=== PATIENT | female | born 1950 | race Caucasian/White ===

== ENCOUNTER 2023-01-01 00:38 | Inpatient (IN) | payer MEDICARE ==
[~2023-01-01] VITALS: Ht 162.6 cm; Wt 58.1 kg
--- NOTE | 2023-01-01 00:54 | NUR ---
Edward AOx4, able to express her concerns. Edward states she had a nuclear test done earlier today at [facility] and started feeling "weird", shaky, right arm and throat pain. No signs of respiratory distress. Discussed plan of care, aptient verbalized agreement.
[2023-01-01] MEDS ORDERED: ONDANSETRON HCL/PF 4 MG/2 ML VIAL IVP ONE (01:00)
[2023-01-01] MEDS ORDERED: IV NS 0.9% 1,000 ML BAG IV ONE (01:00)
[2023-01-01] MEDS ORDERED: ONDANSETRON HCL/PF 4 MG/2 ML VIAL ONE (01:19)
--- NOTE | 2023-01-01 01:25 | NUR ---
LABS DRAWN AND SENT TO LAB, AWAITING RESULTS
[2023-01-01 01:27] LABS: BASOPHILS % (AUTO) 0.6 % (0.0-2.0); HEMATOCRIT 36 % (33-45); LYMPHOCYTES # (AUTO) 2.2 K/uL (0.8-4.8); LYMPHOCYTES % (AUTO) 31.4 % (20.0-44.0); MEAN CORPUSCULAR HGB CONC 34 g/dl (31.0-36.0); MEAN CORPUSCULAR VOLUME 86 fL (82-100); MONOCYTES # (AUTO) 0.7 K/uL (0.1-1.30); MONOCYTES % (AUTO) 10.3 % (2.0-12.0); NEUTROPHILS # (AUTO) 3.8 K/uL (1.8-8.9); NEUTROPHILS % (AUTO) 53.7 % (43.0-81.0); PLATELET COUNT (AUTO) 365 K/uL (150-450); RED BLOOD CELL COUNT(AUTO) 4.18 MIL/uL (4.0-5.2)
[2023-01-01 01:47] LABS: CALCIUM, SERUM 9.3 mg/dL (8.5-10.1); CARBON DIOXIDE 22 mmol/L (21-32); CHLORIDE 89 mmol/L (98-107); CREATININE 0.8 mg/dL (0.6-1.3); GLUCOSE 160 mg/dL (74-106); POTASSIUM 3.6 mmol/L (3.5-5.1); SODIUM SERUM 122 mmol/L (136-145); UREA NITROGEN, BLOOD 9 mg/dL (7-18)
[2023-01-01 01:51] LABS: ALANINE AMINOTRANSFERASE 72 U/L (12-78); ALBUMIN 3.5 g/dL (3.4-5.0); ALKALINE PHOSPHATASE 343 U/L (46-116); ASPARTATE AMINOTRANSFERASE 64 U/L (15-37); BILIRUBIN,DIRECT 0.1 mg/dL (0.0-0.2); BILIRUBIN,TOTAL 0.3 mg/dL (0.2-1.0); TOTAL PROTEIN, SERUM 7.9 g/dL (6.4-8.2)
[2023-01-01] MEDS ORDERED: ASPIRIN 325 MG TABLET ONE (01:59)
[2023-01-01] MEDS ORDERED: ASPIRIN 325 MG TABLET PO ONE (02:00)
[2023-01-01] MEDS ORDERED: IV NS 0.9% 1,000 ML IV PRN (02:30)
[2023-01-01] MEDS ORDERED: MAGNESIUM HYDROXIDE 30 ML UDC PO PRN (02:30)
[2023-01-01] MEDS ORDERED: MAG HYDROX/AL HYDROX/SIMETH 30 ML UDC PO PRN (02:30)
[2023-01-01] MEDS ORDERED: ONDANSETRON HCL/PF 4 MG/2 ML VIAL IVP PRN (02:30)
[2023-01-01] MEDS ORDERED: ACETAMINOPHEN 325 MG TABLET PO PRN (02:30)
--- NOTE | 2023-01-01 03:32 | NUR ---
REPORT GIVEN TO NHAN Lei RN FOR ERIK
[2023-01-01] MEDS ORDERED: ALBU1.25 (03:35)
[2023-01-01] MEDS ORDERED: LISI40TA13 PO (03:35)
[2023-01-01] MEDS ORDERED: HYDR25TA4 PO (03:35)
[2023-01-01] MEDS ORDERED: OMEP40CA21 PO (03:35)
[2023-01-01] MEDS ORDERED: FAMO20TA8 PO (03:35)
[2023-01-01] MEDS ORDERED: SERT25TA5 PO (03:35)
--- NOTE | 2023-01-01 03:50 | NUR ---
[employer] TENDERCLINICAL APPLICATION MANAGER NOTES REPORT RECEIVED FROM NATACHA. PATIENT WAS TRANSFERRED FROM ER VIA GURNEY, WITH NO SIGNS OF DISTRESS. A/0 X 4, ABLE TO MAKE NEEDS KNOWN. DAUGHTER IN BEDSIDE. NO PAIN VERBALIZED AT THIS TIME. ON ROOM AIR, BREATHING EVEN AND UNLABORED, NO DISTRESS OR SOB NOTED AT THIS TIME. ORIENTED PATIENT TO ROOM SETUP AND EDUCATED PATIENT ON THE USE OF CALL LIGHT. IV ACCESS RFA #20G ON SALINE LOCK, INTACT AND PATENT. 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 V/S TAKEN, STABLE AND RECORDED. SKIN ASSESSMENT IS DONE, SKIN IS INTACT. ALL BELONGING CHECKED AND BELONGING LIST SIGNED. SAFETY MEASURES IN PLACE WITH BED IN LOWEST LOCKED POSITION. SIDE RAILS UP X 2. CALL LIGHT AND TRAY WITHIN EASY REACH. WILL CONTINUE TO MONITOR THE PATIENT AND WILL CARRY OUT ANY ONGOING AND ACTIVE MD ORDERS.
[2023-01-01] MEDS: ENOXAPARIN SODIUM 40 MG/0.4 ML DISP.SYRIN SQ SCH (04:29)
[2023-01-01 05:15] VITALS: BP 133/86; TEMP 98.4
[2023-01-01 05:50] LABS: CALCIUM, SERUM 8.9 mg/dL (8.5-10.1); CREATININE 0.7 mg/dL (0.6-1.3); POTASSIUM 4.2 mmol/L (3.5-5.1)
--- NOTE | 2023-01-01 07:20 | NUR ---
ms rn received on bed, awake,alert,oriented x4,not in any form of distress, respirations even and unlabored,no sob noted, lungs are cear,abdomens oft, positive bowel sounds,denies pain at this time, came in w/ nstemi,nsr on monitor ,no chest pain noted,will monitor patient.
--- NOTE | 2023-01-01 07:25 | NUR ---
REAMING MACHINE OPERATOR FOR PLASTIC CLOSING NOTES PATIENT SLEEPING BED. EASILY AWAKEN BY VERBAL STIMULI. A/0 X 4, ABLE TO MAKE NEEDS KNOWN. DAUGHTER IN BEDSIDE. NO PAIN VERBALIZED AT THIS TIME. ON ROOM AIR, BREATHING EVEN AND UNLABORED, NO DISTRESS OR SOB NOTED AT THIS TIME. IV ACCESS RFA #20G RUNNING NS @75ML/HR, INFUSING WELL. PATIENT WITH DENTOFACIAL ORTHOPEDICS DENTIST WITH A CURRENT READING OF SINUS RHYTHM @ 75 BPM, NO CARDIAC DISTRESS NOTED. V/S TAKEN, STABLE AND RECORDED. ALL NEEDS ATTENDED. SAFETY MEASURES MAINTAINED DURING SHIFT. WILL ENDORSE TO THE NEXT SHIFT.
[2023-01-01 08:00] VITALS: BP 135/78; TEMP 98.5
--- NOTE | 2023-01-01 09:00 | NUR ---
ms rn breakfast served,due meds given,tolerated well, was seen by dr. aki harper/ orders made and carried out.
[2023-01-01] MEDS: ASPIRIN 81 MG TAB.CHEW PO SCH (09:24)
[2023-01-01 09:37] LABS: THYROID STIMULATING HORMONE 3.969 uIU/mL (0.358-3.74)
[2023-01-01 09:39] LABS: MAGNESIUM 1.5 mg/dL (1.8-2.4); PHOSPHORUS 2.6 mg/dL (2.5-4.9)
[2023-01-01] MEDS ORDERED: ASCO-495 PO (09:41)
[2023-01-01] MEDS ORDERED: ALBU18HF2 IH (09:41)
[2023-01-01] MEDS ORDERED: LUTE20CA PO (09:41)
[2023-01-01] MEDS ORDERED: CIDE600C PO (09:41)
[2023-01-01] MEDS ORDERED: CRAN250C PO (09:41)
[2023-01-01] MEDS ORDERED: CALC500T52 PO (09:41)
[2023-01-01] MEDS ORDERED: FLUT1BLS6 IH (09:41)
[2023-01-01] MEDS ORDERED: PRAV20TA4 PO (09:41)
[2023-01-01] MEDS ORDERED: BIFI4CAP PO (09:41)
[2023-01-01] MEDS ORDERED: UBID50TA3 PO (09:41)
[2023-01-01] MEDS ORDERED: BIOT10006 PO (09:41)
[2023-01-01] MEDS ORDERED: ALBUTEROL FS 2.5 MG/3 ML VIAL.NEB NEB PRN (11:00)
[2023-01-01 11:07] LABS: BILIRUBIN,URINE NEGATIVE (NEGATIVE); COLOR,URINE YELLOW (YELLOW); EOSINOPHIL,URINE None Seen; LEUKOCYTE ESTERASE ,URINE NEGATIVE (NEGATIVE); NITRITE, URINE NEGATIVE (NEGATIVE); PROTEIN,URINE NEGATIVE (NEGATIVE); UGLUCOSE NEGATIVE (NEGATIVE); UROBILINOGEN,URINE 0.2 EU/dL (0.2)
[2023-01-01 11:16] LABS: CREATININE, URINE 32.1 MG/DL (30.0-125.0)
[2023-01-01] MEDS: IV NS 0.9% 1,000 ML IV SCH (11:46)
[2023-01-01 15:56] VITALS: BP 137/78; TEMP 99.1
[2023-01-01] MEDS ORDERED: MAGNESIUM OXIDE 400 MG TABLET PO SCH (16:00)
[2023-01-01 16:50] VITALS: BP 137/78; TEMP 99.1
[2023-01-01] MEDS: ATORVASTATIN 10 MG TABLET PO SCH ×2 (17:21→17:26)
--- NOTE | 2023-01-01 17:56 | NUR ---
ms rn patient on bed, no distress noted.all needs attended.
[2023-01-01] MEDS ORDERED: FAMOTIDINE (20 MG) 20 MG TABLET PO SCH (18:00)
--- NOTE | 2023-01-01 19:00 | NUR ---
RN OPENING NOTE RECEIVED PT AWAKE IN BED W/ DAUGHTER @ BEDSIDE. PT IS A/OX 4, ABLE TO MAKE NEEDS KNOWN. PT IS IN RA, TOLERATING WELL, BREATHING EVEN AND UNLABORED @ THIS TIME. PT IV PRESENT ON THE RIGHT AC #20 RUNNING NS @ 75MLS/HR, PATENT, INTACT AND FLUSHES WELL W/ NO S&SX OF INFILTRATION @ SITE NOTED. SAFETY MEASURE IS IN PLACE. BED IN LOWEST AND LOCKED POSITION. SIDE RAILS UP X 2. BEDSIDE TABLE AND CALL LIGHT IS EASY REACH. BED ALARM IS ON. WILL CONTINUE TO MONITOR PT ACCORDINGLY.
[2023-01-01 20:00] VITALS: BP 134/77; TEMP 98.2
[2023-01-01] MEDS ORDERED: ATORVASTATIN 10 MG TABLET PO SCH (22:00)
[2023-01-02] VITALS: BP 131/77; TEMP 98.1
[2023-01-02] MEDS: IV NS 0.9% 1,000 ML IV SCH (00:29)
[2023-01-02 04:00] VITALS: BP 131/71; TEMP 98.1
--- NOTE | 2023-01-02 05:00 | NUR ---
PT ABLE TO WALK AROUND THE HALLWAY OF 3RD FLOOR W/ NURSE. PT IS STABLE AND STEADY. PT DID NOT COMPLAIN OF SOB OR DIZZINESS DURING AND AFTER WALKING.
[2023-01-02 06:13] LABS: BASOPHILS % (AUTO) 0.8 % (0.0-2.0); EOSINOPHILS % (AUTO) 3.6 % (0.0-6.0); HEMATOCRIT 33 % (33-45); HEMOGLOBIN 10.8 g/dL (11.5-14.8); LYMPHOCYTES # (AUTO) 2.4 K/uL (0.8-4.8); LYMPHOCYTES % (AUTO) 45.8 % (20.0-44.0); MEAN CORPUSCULAR HGB CONC 33 g/dl (31.0-36.0); MEAN CORPUSCULAR VOLUME 87 fL (82-100); MONOCYTES # (AUTO) 0.6 K/uL (0.1-1.30); MONOCYTES % (AUTO) 12.3 % (2.0-12.0); NEUTROPHILS # (AUTO) 1.9 K/uL (1.8-8.9); NEUTROPHILS % (AUTO) 37.5 % (43.0-81.0); PLATELET COUNT (AUTO) 351 K/uL (150-450); RED BLOOD CELL COUNT(AUTO) 3.79 MIL/uL (4.0-5.2); WHITE BLOOD COUNT (AUTO) 5.2 K/uL (4.3-11.0)
--- NOTE | 2023-01-02 06:37 | NUR ---
RN CLOSING NOTE PT AWAKE & RESTING COMFORTABLY IN BED . PT IS A/OX 4, RESPONSIVE AND FOLLOWS VERBAL COMMAND. PT IS IN RA, W/ NO S&SX OF RESPIRATORY DISTRESS @ THIS TIME. PT IV PRESENT ON THE LEFT AC #20 RUNNING NS @ 75MLS/HR, PATENT, INTACT AND FLUSHES WELL W/ NO S&SX OF INFILTRATION @ SITE NOTED. SAFETY MEASURE IS IN PLACE. BED IN LOWEST AND LOCKED POSITION. SIDE RAILS UP X 2. BEDSIDE TABLE AND CALL LIGHT IS EASY REACH. BED ALARM IS ON. WILL ENDORSE WO THE NEXT SHIFT FOR ERIK.
[2023-01-02 07:00] VITALS: BP 127/70; TEMP 98.3
[2023-01-02 07:02] LABS: ALBUMIN 2.9 g/dL (3.4-5.0); BILIRUBIN,TOTAL 0.3 mg/dL (0.2-1.0); CREATININE 0.8 mg/dL (0.6-1.3); MAGNESIUM 1.9 mg/dL (1.8-2.4); PHOSPHORUS 3.5 mg/dL (2.5-4.9); POTASSIUM 4.2 mmol/L (3.5-5.1); TOTAL PROTEIN, SERUM 6.8 g/dL (6.4-8.2)
--- NOTE | 2023-01-02 07:27 | NUR ---
RN OPENING NOTE RECEIVED PATIENT IN BED , AWAKE, A/O X4, VERBALLY RESPONSIVE AND ABLE TO MAKE NEEDS KNOWN. NO SIGNS OF ACUTE DISTRESS NOTED. ON ROOM AIR, TOLERATING WELL. NO SOB NOTED, BREATHING EVEN AND UNLABORED. DENIES ANY PAIN AT THIS TIME. ON EMERGENCY MEDICINE SPECIALIST SHOWING SINUS RHYTHM, HR @72. WITH IV ACCESS ON LEFT ANTECUBITAL AREA #20G, INTACT AND PATENT, RUNNING NS @75 ML/HR. SAFETY MEASURE IN PLACE. BED IN LOW AND LOCKED POSITION, SIDE RAILS UP X2, CALL LIGHT PLACED WITHIN EASY REACH. WILL CONTINUE TO MONITOR PATIENT.
[2023-01-02] MEDS ORDERED: PANTOPRAZOLE 40 MG TABLET.DR PO SCH (07:30)
[2023-01-02] MEDS: ASPIRIN 81 MG TAB.CHEW PO SCH (08:25)
[2023-01-02] MEDS: ENOXAPARIN SODIUM 40 MG/0.4 ML DISP.SYRIN SQ SCH (08:31)
[2023-01-02] MEDS ORDERED: SERTRALINE HCL 25 MG TABLET PO SCH (09:00)
[2023-01-02] MEDS ORDERED: CALCIUM CARBONATE (1250) 500 MG TABLET PO SCH (09:00)
[2023-01-02] MEDS ORDERED: FLUTICASONE/VILANTEROL 1 EACH BLST.W.DEV IH SCH (09:00)
[2023-01-02] MEDS ORDERED: ASCORBIC ACID 500 MG TABLET PO SCH (09:00)
--- NOTE | 2023-01-02 11:54 | NUR ---
CLAIM ADMINISTRATOR NOTE PATIENT DISCHARGED HOME IN STABLE CONDITION. PATIENT REMAINS AWAKE, A/O X4, VERBALLY RESPONSIVE AND ABLE TO MAKE NEEDS KNOWN. NO SIGNS OF ACUTE DISTRESS NOTED. IV ACCESS REMOVED, PRESSURE DRESSING APPLIED TO SITE. ID BAND REMOVED. ALL BELONGINGS ACCOUNTED FOR, FORMS SIGNED BY PATIENT. EXIT CARE FOLDER GIVEN TO PATIENT, HEALTH TEACHINGS AND DISCHARGE INSTRUCTIONS PROVIDED WITH VERBALIZATION OF UNDERSTANDING. PATIENT LEFT UNIT @1135, AMBULATORY, PICKED UP BY DAUGHTER MONY VIA PRIVATE CAR. CN AWARE OF DISCHARGE.
== END 2023-01-02 12:56 | disposition home or self-care (01) | DRG 643 ==
LOC: ER 00:40 → TELE 02:53
PROVIDERS: ADMIT Internal Medicine; ATTEND Internal Medicine
DX: E22.2 Syndrome of inappropriate secretion of antidiuretic hormone (principal); I21.A1 Myocardial infarction type 2; E78.5 Hyperlipidemia, unspecified; I10 Essential (primary) hypertension; K44.9 Diaphragmatic hernia without obstruction or gangrene; R11.2 Nausea with vomiting, unspecified; T50.2X5A Adverse effect of carbonic-anhydrase inhibitors, benzothiadiazides and other diuretics, initial encounter; Y92.89 Other specified places as the place of occurrence of the external cause; R73.9 Hyperglycemia, unspecified
CPT/HCPCS: 36415; 71045-TC; 80048-TC; 80053-TC; 80061-TC; 80076-TC; 82533; 82570-TC; 83735-TC; 84100-TC; 84295-TC; 84300-TC; 84439-TC; 84443-TC; 84484-TC; 85025-TC; 85730-TC; 87081-TC; 93307-TC; A4223; G0378; J1650; J2405; J7030